=== PATIENT | female | born 1945 | race Hispanic/Latino ===

== ENCOUNTER 2017-07-19 06:14 | Day surgery (SDC) | payer MEDICARE, OTHER ==
[2017-07-12 10:13] VITALS: BMI 23.8
[2017-07-19] MEDS ORDERED: Propofol 10 mg/ml Inj (20 ML) ONE ×2 (08:03→08:54)
[2017-07-19] MEDS ORDERED: Lidocaine 2% Inj (20ml) ONE (08:53)
[2017-07-19] MEDS ORDERED: Sodium Chloride 0.9% 1,000 ML IV SCH (09:15)
[2017-07-19 09:26] VITALS: RESP 14
[2017-07-19 10:25] VITALS: BP 166/57; PULSE 60; TEMP 97.5; O2SAT 100
== END 2017-07-19 11:04 | disposition home or self-care (01) ==
LOC: ENDO 06:14
PROVIDERS: ATTEND Internal Medicine Gastroenterology
DX: D12.2 Benign neoplasm of ascending colon (principal); D12.5 Benign neoplasm of sigmoid colon; D12.3 Benign neoplasm of transverse colon; K29.70 Gastritis, unspecified, without bleeding; B96.81 Helicobacter pylori [H. pylori] as the cause of diseases classified elsewhere; K57.30 Diverticulosis of large intestine without perforation or abscess without bleeding; K64.0 First degree hemorrhoids; K64.4 Residual hemorrhoidal skin tags; I10 Essential (primary) hypertension; F41.9 Anxiety disorder, unspecified; R63.4 Abnormal weight loss
CPT/HCPCS: 43239; 45380; 45390; 88305; 88342; J2704; J3010; J7030; J7040